=== PATIENT | male | born 1955 | race American Indian/Alaskan Native ===

== ENCOUNTER 2019-04-22 22:55 | Emergency (ER) | payer OTHER ==
[2019-04-23] MEDS ORDERED: ACETAMINOPHEN 500 MG TAB PO ONE (03:21)
[2019-04-23] MEDS ORDERED: IBUPROFEN 600 MG TAB PO ONE (03:21)
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
[2019-04-23 05:10] VITALS: BP 144/91
== END 2019-04-23 05:10 | disposition home or self-care (01) ==
LOC: ED 22:55
DX: M62.830 Muscle spasm of back (principal); M62.838 Other muscle spasm; Z79.899 Other long term (current) drug therapy; V49.49XA Driver injured in collision with other motor vehicles in traffic accident, initial encounter; Y93.89 Activity, other specified; Y92.410 Unspecified street and highway as the place of occurrence of the external cause; Y99.8 Other external cause status
CPT/HCPCS: 72040; 72100; 99283